=== PATIENT | female | born 1930 | race Caucasian/White ===

== ENCOUNTER 2016-05-10 13:38 | Outpatient (CLI) ==
[2013-12-15 09:37] VITALS: BMI 22.9
[2016-05-10 17:29] LABS: PROTHROMBIN TIME 27.9 SEC (9.3-11.0)
== END 2016-05-10 13:39 | disposition home or self-care (01) ==
LOC: LAB 13:38
PROVIDERS: ATTEND General Practice
DX: I48.91 Unspecified atrial fibrillation (principal)
CPT/HCPCS: 36415; 85610

== ENCOUNTER 2016-09-18 13:40 | Outpatient (CLI) ==
[2013-12-15 09:37] VITALS: BMI 22.9
--- NOTE | 2016-09-18 14:37 | US ---
EXAM: Ultrasound venous Doppler unilateral lower extremity HISTORY: Pain in right leg COMPARISON: None TECHNIQUE: Venous duplex ultrasound of the right lower extremity was performed using color, devlin-sc lynne, and Doppler flow imaging. FINDINGS: There is normal color flow and devlin scale appearance of the right common femoral, greater saphenous, profunda femoral, femoral, popliteal, peroneal, posterior tibial, and anterior tibial ve ins without evidence of intraluminal thrombus. Compression and augmentation is normal. IMPRESSION: No right lower extremity deep venous thrombosis.
== END 2016-09-18 13:41 | disposition home or self-care (01) ==
LOC: RAD 13:40
PROVIDERS: ATTEND General Practice
DX: M79.604 Pain in right leg (principal)

== ENCOUNTER 2016-10-30 10:50 | Inpatient (IN) ==
[2016-10-30 13:32] LABS: BASOPHILS % (AUTO) 0.4 % (0.0-3.0); EOSINOPHILS # (AUTO) 0.2 K/ul (0.0-0.7); EOSINOPHILS % (AUTO) 1.8 % (0.0-7.0); HEMATOCRIT 38.6 % (37.0-47.0); HEMOGLOBIN 12.8 g/dl (12.0-16.0); IMMATURE GRANULOCYTE % (AUTO) 0.2 % (0.0-5.0); LYMPHOCYTES # (AUTO) 2.9 K/uL (0.60-3.4); LYMPHOCYTES % (AUTO) 34.3 (10.0-50.0); MEAN CORPUSCULAR HGB CONC 33.2 (31.8-35.4); MEAN CORPUSCULAR VOLUME 87.5 fl (81.0-99.0); MONOCYTES # (AUTO) 0.6 K/uL (0.4-2.0); NEUTROPHILS # (AUTO) 4.7 K/ul (2.0-6.9); NEUTROPHILS % (AUTO) 56.3; PLATELET COUNT 201 10^3/uL (140-440); RED BLOOD COUNT 4.41 10^6/ul (4.20-5.40); WHITE BLOOD COUNT 8.39 K/ul (4.6-10.2)
[2016-10-30 13:51] LABS: PROTHROMBIN TIME 18.4 SEC (9.3-11.0)
[2016-10-30 13:52] LABS: ALBUMIN 3.3 g/dL (3.4-5.0); ALBUMIN/GLOBULIN RATIO 1.14; ANION GAP 15.4; BILIRUBIN,TOTAL 0.28 mg/dL (0.00-1.20); BUN/CREATININE RATIO 19.38; CALCIUM 9.2 mg/dL (8.2-10.2); CREATININE 0.98 mg/dL (0.60-1.30); POTASSIUM 4.4 mmol/L (3.5-5.10); TOTAL PROTEIN 6.2 g/dL (5.8-8.1)
--- NOTE | 2016-10-30 14:13 | US ---
EXAM: Carotid ultrasound HISTORY: Dizziness and blurred vision COMPARISON: None TECHNIQUE: Carotid ultrasound was performed using devlin scale, color, and Doppler imaging was perfor med. FINDINGS: Right carotid: There is atherosclerotic plaque in the common carotid, bulb, and internal carotid ar griselda. Peak systolic velocity measurement in the right internal carotid artery is 0.8 meters per sec ond. End-diastolic velocity measurement in the right internal carotid artery is 0.2 meters per seco nd. Right internal to common carotid artery peak systolic velocity ratio is 1.6. Flow in the right vertebral artery is antegrade. Left carotid: There is atherosclerotic plaque in the common carotid, bulb, and internal carotid art kira with visual estimate of narrowing approximating 50% in the bulb/proximal internal carotid artery . Peak systolic velocity measurement in the left internal carotid artery is 1.1 meters per second. End-diastolic velocity measurement in the left internal carotid artery is 0.3 meters per second. L eft internal to common carotid artery peak systolic velocity ratio measures 1.5. Flow in the left v ertebral artery is antegrade. IMPRESSION: 1. Right internal carotid: Peak systolic velocity corresponds with mild (less than 50%) stenosis 2. Left internal carotid: Peak systolic velocity corresponds with mild (less than 50%) stenosis. Vi sual estimate of narrowing approximating 50% in the bulb/proximal internal carotid artery.
[2016-10-30] MEDS ORDERED: COUMADIN PO SCH (17:00)
[2016-10-30 17:23] LABS: ERYTHROCYTE SEDIMENTATION RATE 20 mm/hr (0-20); ESR INTERNAL QC INTERNAL QC VALID
[2016-10-30 18:30] LABS: BILIRUBIN,URINE Negative (NEGATIVE); KETONES,URINE Negative (NEGATIVE); LEUKOCYTE ESTERASE ,URINE 1+ (NEGATIVE); NITRITE,URINE Negative (NEGATIVE); PROTEIN,URINE Negative (NEGATIVE); URINE, BLOOD Negative (NEGATIVE)
[2016-10-30 18:31] LABS: ADD URINE MICROSCOPIC YES
[2016-10-30 18:33] LABS: BACTERIA,URINE 2+ (NOT PRESENT)
[2016-10-30] MEDS: DRONEDARONE HCL 400 MG PO SCH (20:45)
[2016-10-30] MEDS: LOPRESSOR PO SCH (20:46)
[2016-10-30] MEDS: CYCLOSPORINE EACHEYE SCH ×2 (20:46→20:50)
[2016-10-31 04:26] LABS: BASOPHILS % (AUTO) 0.5 % (0.0-3.0); EOSINOPHILS # (AUTO) 0.3 K/ul (0.0-0.7); EOSINOPHILS % (AUTO) 3.3 % (0.0-7.0); HEMATOCRIT 39.7 % (37.0-47.0); IMMATURE GRANULOCYTE % (AUTO) 0.1 % (0.0-5.0); LYMPHOCYTES % (AUTO) 39.4 (10.0-50.0); MEAN CORPUSCULAR HEMOGLOBIN 28.6 pg (27.0-31.0); MEAN CORPUSCULAR HGB CONC 32.7 (31.8-35.4); MEAN CORPUSCULAR VOLUME 87.4 fl (81.0-99.0); MONOCYTES # (AUTO) 0.7 K/uL (0.4-2.0); MONOCYTES % (AUTO) 9.5 (0-10); NEUTROPHILS # (AUTO) 3.5 K/ul (2.0-6.9); NEUTROPHILS % (AUTO) 47.2; PLATELET COUNT 189 10^3/uL (140-440); RED BLOOD COUNT 4.54 10^6/ul (4.20-5.40); WHITE BLOOD COUNT 7.51 K/ul (4.6-10.2)
[2016-10-31 04:47] LABS: ALBUMIN 3.1 g/dL (3.4-5.0); ALBUMIN/GLOBULIN RATIO 1.07; ANION GAP 13.6; BILIRUBIN,TOTAL 0.37 mg/dL (0.00-1.20); BUN/CREATININE RATIO 17.64; CALCIUM 8.9 mg/dL (8.2-10.2); CREATININE 1.02 mg/dL (0.60-1.30); POTASSIUM 4.6 mmol/L (3.5-5.10)
[2016-10-31] MEDS ORDERED: IMDUR PO SCH (09:00)
[2016-10-31] MEDS: DRONEDARONE HCL 400 MG PO SCH (10:03)
[2016-10-31] MEDS: LOPRESSOR PO SCH (10:03)
[2016-10-31] MEDS: CYCLOSPORINE EACHEYE SCH (10:04)
--- NOTE | 2016-10-31 10:51 | CT ---
EXAM: CT of the abdomen pelvis without contrast History: Fluctuating blood pressure, adrenal mass. Comparison: CT abdomen pelvis 12/15/2013 Technique: Multiplanar CT images through the abdomen pelvis were obtained without the administratio n of IV contrast Findings: Lung bases are free of consolidation. No acute osseous abnormalities. Normal bilateral adrenal glands. Stomach is moderately distended with fluid. Cholelithiasis. Calc ified granulomas within the liver and spleen. Atherosclerotic vascular calcifications. No renal st ones and no hydronephrosis. No peripancreatic inflammation. Fluid filled nondilated loops of small bowel. Colonic diverticulosis. No free air. No ascites. No bladder wall thickening. Atrophic u terus. 2.5 cm left adnexal cyst is not significantly changed. Impression: 1. No adrenal masses. 2. Atherosclerotic vascular disease. 3. Probable mild gastroenteritis. 4. Colonic diverticulosis. 5. No change in the small left adnexal cyst.
[2016-10-31] MEDS ORDERED: COUMADIN PO SCH (17:00)
[2016-10-31 17:47] VITALS: TEMP 97.7
[2016-10-31 20:08] VITALS: BP 160/70
--- NOTE | 2016-11-05 11:19 | HP ---
CHIEF COMPLAINT: Fullness head, not feeling well, markedly elevated blood pressure and light headedness. SOURCE OF HISTORY: The patient HISTORY OF PRESENT ILLNESS: The patient early Saturday morning 10/29/16 at 2 am woke up from her sleep and claimed not to feel well. She stood up from bed and experienced nausea, wave of dizziness and staggering. She felt the fullness but no pain. She also experienced blurring of vision with diaphoresis plus generalized weakness. No vomiting with the nausea and denies any palpitation or rapid heart rate. The daughter did bring her to the emergency room at [facility] and was noted to have a blood pressure of 207 systolic. Medications were given and blood pressure did come to normal range and then patient was then discharged and instructed to see me so I saw the patient the following day 10/30/16. This patient had a CT scan at the ER showing no thrombosis, infarct or hemorrhages. The patient at the time of my examination prior to admission still did not feel well, still had the fullness, lightheadedness with some nausea but no further diaphoresis. It was felt that this patient probably been admitted to the hospital for further observation and diagnosis. The reason for the acute rise of blood pressure was not documented. PAST PERSONAL HISTORY: The patient had cardiac catheterization and stent in 2011 Bilateral cataract extraction 2014, uses Restasis for dryness of the ear Been Hypertensive for the last 10 years or so.Doesn't remember any episode of acute blood pressure rise. 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 Appendectomy at age 13 FAMILY HISTORY: Father had myocardial infarction Mother had congestive heart failure on pacemaker SOCIAL HISTORY: The patient is and resides with her and is the caregiver to her . She never did smoke but was exposed to second hand smoke from her father and spouse. MEDICATIONS: Restasis one drop to both eyes twice a day Warfarin 5mg daily plus 2.5mg daily Multi-vitamins one daily. Isosorbide Mononitrate 30mg daily Metoprolol Tartrate 25mg twice a day Warfarin Sodium 5mg daily Warfarin Sodium 22.5mg as directed Multaq 400mg PO twice a day ALLERGIES: No known drug allergies. REVIEW OF SYSTEMS: CONSTITUTIONAL: The patient has no fever or chills but is fatigued. FOUNTAIN DISPENSER: The patient has fullness of the head, light headedness, still somewhat staggery now with normal blood pressure. No seizures. VISUAL: The patient no longer has blurred vision or double vision or any loss of vision. AUDITORY: Hearing is slightly decreased but no tinnitus. No pain or drainage. RESPIRATORY: Denies any significant cough and denies. No history of hemoptysis CARDIOVASCULAR: Denies any chest pain or chest tightness. No shortness of breath on exertion. GASTROINTESTINAL: The patient had nausea with no vomiting. no abdominal pain and no diarrhea. GENITOURINARY: Denies any pain, frequency or urgency or urination. MUSCULOSKELETAL: No significant joint pain requiring medication ENDOCRINE: Negative INTEGUMENT: No rash or pleuritis. HEMATOLOGIC: Denies any history of prolonged bleeding PSYCHIATRIC: Affect is normal. PHYSICAL EXAMINATION: GENERAL: The patient is an 86 year old female admitted to the hospital because of fullness of the head, ataxia, waves of light headedness, diaphoresis and weakness with markedly elevated blood pressure. He was seen initially at [facility] Emergency room and was treated and advised to see me as soon as possible. VITAL SIGNS: Temperature 97.7, pulse 60, blood pressure left arm 140/64, right 154/66, respiratory rate 16, oxygen saturation 94%. HEAD: Unremarkable FACE: Symmetrical and equal with no facial weakness and no remarkable tenderness to palpation in the frontal maxillary sinus areas. EYES: Pupils equal/reactive to light. 3mm in size. Conjunctivae not pale. Sclerae not icteric. Questionable EARS: No inflammation of the external canal. No significant abnormalities in the tympanic membrane MOUTH: Unremarkable. THROAT: No inflammation, tumors or exudate. NECK: No masses. No bruit. No tenderness. No rigidity. CHEST: Symmetrical and equal with good expansion with no remarkable tenderness. LUNGS: Breath sounds are heard in both sides. No rales or wheezing. HEART: Audible and regular with good tones. No murmurs. ABDOMEN: Flat soft with no remarkable tenderness. No guarding and bowl sounds are active. EXTERNAL GENITALIA: Not examined RECTAL/PELVIC: Not performed LOWER EXTREMITIES: Symmetrical and equal with no significant edema in both legs. Pedal pulses diminished. Plantar stimulation flexion response. UPPER EXTREMITIES: Symmetrical and equal. Good motor strength and symmetrical. ASSESSMENT: 1. Accelerated hypertension 2. Hypertensive encephalopathy 3. Acute Labyrinthitis probable 4. Hypertension on medication 5. Coronary artery disease, status post cardiac cath plus stent 6. Cardiac arrhythmia on medication arrhythmic plus anticoagulation PLAN: 1. CAT scan of abdomen and pelvis to look for adrenal tumors 2. Urine collection for urinary catecholamines 3. BMA liter with instruction as to the kind of food that she should avoid before collection 4. CT angiogram head or brain since the patient has a pacemaker and MRI/MRA is not advisable although it can be accomplish but it should be in a place where there is stand by individual who could change in the pacemaker is that would be necessary. ARAVINDD
--- NOTE | 2016-11-08 10:56 | DS ---
PATIENT IDENTIFICATION: 86 year old female who was seen at the office on the day of admission because of fullness of the head and persistent dizziness. The patient woke up early in the morning on 10/29/2016 about 2 o' clock not feeling better. When she stood up, she was dizzy and staggered. She did not fall. She also had nausea with diaphoresis, but no vomiting. The patient was seen at [facility] emergency room and was noted to have a systolic blood pressure of 207. This patient is hypertensive, but never had a blood pressure close to that. She had fullness in the head with waves of dizziness with nausea. No vomiting. Some blurred vision and diaphoresis. No chest pain. She was discharged and instructed to see me the following day or as soon as possible. This patient was then seen the next day, 10/30/2016, and she had persistent problems although less. The patient was advised admission for further work-up and observation. The patient was felt to have some hypertensive encephalopathy symptoms, however the reason for the rapid rise of the blood pressure is not known. The daughter had suggested that maybe stress of taking care of her who has significant illness consisting of multiple myeloma, congestive heart failure and other significant medical conditions. I did advise them that stress would be more or less a diagnosis at the end for consideration, when ever consideration was ruled out. The patient had a CT scan of the head without contrast at [facility], which was negative for any acute processes. HOSPITAL COURSE: The patient was alert and oriented, not dyspneic, nor tachypneic. The blurred vision has resolved. She still has the fullness in her head, as well as the wavy dizziness. She claimed to have had no previous episodes of the same. The patient while in the hospital had the following work- up; CBC times two showing essentially the same results and not abnormal. ESR 20, ProTime nontherapeutic, chemistries unremarkable, except for a BUN at the upper normal and E GFR below 60, 64 and 51 respectably. Creatinine still is normal at 0.98 and 1.02. Liver enzymes normal. C reactive protein normal. Urinalysis slightly abnormal with leukocyte esterase 1+, WBC 5-10, bacteria 2+, nitrite negative. Urine culture preliminary gram negative rods. The patient, however, does not have any symptoms of dysuria or urgency. The patient throughout her hospital stay remained afebrile. The blood pressure was fluctuating and on admission was 140/64 left and 154/66 right with fluctuations as the same, except she had one blood pressure that was 102/70 or 10/31/16 at 5:28 in the morning. At 9:43 a.m. on 10/31/16, the blood pressure was 104/64. The rest of the blood pressures on 10/31/16 were normal, except just before discharge at 8:07 p.m. of 167/70. Carotid ultrasound negative for any significant carotid stenosis, less than 50% bilaterally. CT scan of the abdomen and pelvis showed no adrenal masses, atherosclerotic vascular disease, probable mild gastroenteritis, the patient had no GI symptoms. No change in the small left adnexal cyst. 24 hour urine collection was done for urine catecholamines. The collection is done at home, since the patient desires to go home because of her husbands condition. I had explained to her that we are not completely done with the work-up, however because of her situation, that she is discharged today. The patient at the time of discharge is alert, ambulatory, oriented times four and claimed to be feeling much better, although not completely back to where she was. She had movement of all extremities and no facial weakness. The pupils were equal and reactive to light. Strength of both upper and lower extremities are symmetrical and equal. She is then instructed to resume her previous medications and if she has any exacerbation of her problems, that she should return to the emergency room. She is to see me this coming Saturday. 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 FINAL DIAGNOSES: 1. ACCELERATED HYPERTENSION 2. HYPERTENSIVE ENCEPHALOPATHY SECONDARY TO #1 3. HYPERTENSION BY HISTORY 4. CORONARY ARTERY DISEASE, POST CARDIAC CATHETERIZATION WITH STENTS. 5. CARDIAC ARRHYTHMIA, PACEMAKER MTDD
== END 2016-10-31 20:10 | disposition home or self-care (01) | DRG 305 ==
LOC: MEDSURG B 10:50
PROVIDERS: ADMIT General Practice; ATTEND General Practice
DX: I10 Essential (primary) hypertension (principal); I67.4 Hypertensive encephalopathy; R53.1 Weakness; I25.10 Atherosclerotic heart disease of native coronary artery without angina pectoris; I49.9 Cardiac arrhythmia, unspecified; H53.8 Other visual disturbances; I95.1 Orthostatic hypotension; R42 Dizziness and giddiness; R11.0 Nausea; N83.8 Other noninflammatory disorders of ovary, fallopian tube and broad ligament; Z95.5 Presence of coronary angioplasty implant and graft; Z95.0 Presence of cardiac pacemaker; Z79.01 Long term (current) use of anticoagulants; Z79.899 Other long term (current) drug therapy; Z77.22 Contact with and (suspected) exposure to environmental tobacco smoke (acute) (chronic)
CPT/HCPCS: 36415; 80053; 81001; 85025; 85610; 85651; 86140; 87086; 87186; 93005; 93010

== ENCOUNTER 2016-11-02 07:56 | Outpatient (CLI) | END 2016-11-02 07:57 | disposition home or self-care (01) | LOC: LAB 07:56 | PROVIDERS: ATTEND General Practice | DX: R82.8 Abnormal findings on cytological and histological examination of urine (principal) | CPT/HCPCS: 36415; 81050; 82384 ==

== ENCOUNTER 2017-04-01 13:09 | Outpatient (CLI) | END 2017-04-01 13:10 | disposition home or self-care (01) | LOC: LAB 13:09 | PROVIDERS: ATTEND General Practice | DX: I10 Essential (primary) hypertension (principal); I25.10 Atherosclerotic heart disease of native coronary artery without angina pectoris; I35.8 Other nonrheumatic aortic valve disorders; I48.91 Unspecified atrial fibrillation; I67.4 Hypertensive encephalopathy; Z79.899 Other long term (current) drug therapy | CPT/HCPCS: 36415; 80053; 80061; 81001; 85025; 87086 ==

== ENCOUNTER 2017-05-13 11:46 | Outpatient (CLI) | END 2017-05-13 11:47 | disposition home or self-care (01) | LOC: LAB 11:46 | PROVIDERS: ATTEND General Practice | DX: I25.10 Atherosclerotic heart disease of native coronary artery without angina pectoris (principal); I11.9 Hypertensive heart disease without heart failure; I35.8 Other nonrheumatic aortic valve disorders; I48.91 Unspecified atrial fibrillation; Z79.899 Other long term (current) drug therapy | CPT/HCPCS: 36415; 80053; 80061; 81001; 85025 ==

== ENCOUNTER 2017-07-26 12:53 | Outpatient (CLI) | END 2017-07-26 12:54 | disposition home or self-care (01) | LOC: FCC-LAB 12:53 | PROVIDERS: ATTEND General Practice | DX: I25.10 Atherosclerotic heart disease of native coronary artery without angina pectoris (principal); I10 Essential (primary) hypertension; I48.91 Unspecified atrial fibrillation; I35.8 Other nonrheumatic aortic valve disorders; I15.9 Secondary hypertension, unspecified; Z78.9 Other specified health status; Z79.899 Other long term (current) drug therapy | CPT/HCPCS: 36415; 80053; 80061; 81001; 85025 ==

== ENCOUNTER 2017-10-14 15:10 | Observation (INO) ==
[2017-10-14 16:39] VITALS: BMI 21.9
[2017-10-14] MEDS ORDERED: WARFARIN SODIUM 2.5 MG PO SCH (18:15)
[2017-10-14] MEDS ORDERED: WARFARIN SODIUM 5 MG PO SCH (18:15)
[2017-10-14] MEDS ORDERED: TYLENOL PO PRN (18:17)
[2017-10-14] MEDS ORDERED: VISTARIL INJ IM PRN (18:17)
[2017-10-14] MEDS ORDERED: ATROPINE SULFATE PFS IVP PRN (18:17)
[2017-10-14] MEDS ORDERED: NITROSTAT SL PRN (18:17)
[2017-10-14] MEDS: CYCLOSPORINE EACHEYE SCH ×2 (19:18→20:58)
--- NOTE | 2017-10-14 19:23 | CT ---
EXAM: CT of the head without contrast History: Dizziness. Technique: Multiplanar CT images through the head were obtained without the administration of IV con trast Findings: The visualized paranasal sinuses and mastoid air cells are clear in general. No acute fabrizio varial abnormalities. Intracranially the ventricular and cisternal spaces are normal in size, shape and configuration for a patient of this age. No dominant mass or midline shift. No hydrocephalous. No acute intracranial hemorrhage or abnormal extraaxial fluid collections. Impression: No acute intracranial process.
--- NOTE | 2017-10-14 19:24 | DI ---
EXAM: Two views of the chest. History: Dizziness. Comparison: Chest radiograph 09/01/2010 Findings: Heart is mildly enlarged. Pacer device. Atherosclerotic vascular calcifications. No foca l consolidation. No appreciable pleural fluid and no pneumothorax. No acute osseous abnormalities. Impression: Mild cardiomegaly without acute disease in the chest.
[2017-10-14] MEDS ORDERED: METOPROLOL TARTRATE 25 MG PO SCH (21:00)
[2017-10-14] MEDS ORDERED: DRONEDARONE HCL 400 MG PO SCH (21:00)
[2017-10-14] MEDS ORDERED: LATANOPROST OP SCH (21:00)
[2017-10-15] MEDS ORDERED: WARFARIN SODIUM 5 MG PO SCH (07:30)
[2017-10-15] MEDS: CYCLOSPORINE EACHEYE SCH ×2 (09:57→20:18)
[2017-10-15] MEDS: IMDUR PO SCH (09:57)
[2017-10-15] MEDS: DRONEDARONE HCL 400 MG PO SCH ×2 (09:57→20:19)
[2017-10-15] MEDS: METOPROLOL TARTRATE 25 MG PO SCH ×2 (09:58→20:18)
[2017-10-15] MEDS: NON-FORMULARY MEDICATION (Multivitamin [Multi-Vitamin Daily] 1 EACH) PO SCH (10:00)
--- NOTE | 2017-10-15 13:16 | US ---
EXAM: Carotid ultrasound HISTORY: Dizziness COMPARISON: 10/30/2016 TECHNIQUE: Carotid ultrasound was performed using devlin scale, color, and Doppler imaging was perform ed. FINDINGS: Right carotid: There is atherosclerotic plaque in the common carotid and bulb/proximal internal frankel tid artery. Peak systolic velocity measurement in the right internal carotid artery is 0.9 meters pe r second. End-diastolic velocity measurement in the right internal carotid artery is 0.2 meters per second. Right internal to common carotid artery peak systolic velocity ratio is 1.6. Flow in the ri ght vertebral artery is antegrade. Left carotid: There is atherosclerotic plaque in the common carotid and bulb/internal carotid artery with visual estimate of narrowing approximating 50% or slightly greater in the bulb/proximal interna l carotid artery. Peak systolic velocity measurement in the left internal carotid artery is 0.7 mete rs per second. End-diastolic velocity measurement in the left internal carotid artery is 0.2 meters per second. Left internal to common carotid artery peak systolic velocity ratio measures 1.1. Flow in the left vertebral artery is antegrade. IMPRESSION: 1. Right internal carotid: Peak systolic velocity corresponds with mild (less than 50%) stenosis. 2. Left internal carotid: Peak systolic velocity corresponds with mild (less than 50%) stenosis. Vis ual estimate of narrowing approximating 50% or slightly greater in the bulb/proximal internal carotid artery
[2017-10-15] MEDS ORDERED: WARFARIN SODIUM 2.5 MG PO SCH (17:00)
[2017-10-15] MEDS ORDERED: LATANOPROST OP SCH (21:00)
[2017-10-16] MEDS: DRONEDARONE HCL 400 MG PO SCH (08:02)
[2017-10-16] MEDS: IMDUR PO SCH (08:02)
[2017-10-16] MEDS: CYCLOSPORINE EACHEYE SCH (08:02)
[2017-10-16] MEDS: METOPROLOL TARTRATE 25 MG PO SCH (08:02)
[2017-10-16] MEDS: NON-FORMULARY MEDICATION (Multivitamin [Multi-Vitamin Daily] 1 EACH) PO SCH (08:04)
[2017-10-16 10:13] VITALS: TEMP 97.6
--- NOTE | 2017-10-16 14:11 | STRESSMOD ---
Date of Test: 10/16/17 Ordering Physician: DR. DAYANARA BAIG Occupation: RETIRED Reason for Exam: CARDIOMEGALY, A-FIB, SOB Smoking History: NONE Height: 65" Weight: 132 Current Medications: ATROPINE, TYLENOL, VISTARIL, IMDUR, NITROSTAT, METOPROLOL, COUMADIN, RESTASIS Resting EKG: PACEMAKER RHYTHM Target Heart Rate: 111/131 S-T SEGMENT STAGE MPH/GRADE HEART RATE BPM BLOOD PRESSURE mmhg RHYTHM +/- ELEVATION DEPRESSION SYMPTOMS,COMMENTS At Rest 65 118/72 PACEMAKER X NONE 1 1.7/0% 70 114/68 SR X NONE 2 1.7/5% 124/52 SR X NONE 3 1.7/10% 4 2.5/12% 5 3.4/14% Immediately After 76 SR X Minutes Post Exercise 3:00 65 122/50 PACEMAKER X NO COMMENTS Minutes Post Exercise DURATION OF EXERCISE: 4:53 MAXIMUM HEART RATE REACHED: 76 BPM 94% OXYGEN SATURATION WITH EXERCISE ON ROOM AIR METS 3.5 INTERPRETATION: 1. INCONCLUSIVE FOR ISCHEMIA SHE DID NOT REACH TARGET HEART RATE 2. NO ARRHYTHMIAS 3. NO CHEST PAIN OR CHEST DISCOMFORT 4. BLOOD PRESSURE RESPONSE: NORMAL NORMAL LEFT VENTRICULAR CONTRACTILITY MTDD
[2017-10-16 15:05] VITALS: BP 104/56
[2017-10-16] MEDS ORDERED: WARFARIN SODIUM 5 MG PO SCH (17:00)
--- NOTE | 2017-10-17 08:18 | ECHOSTRESS ---
Date of Exam: 10/16/17 Ordering Physician: DR. DAYANARA BAIG Reason for Echo: CARDIOMEGALY, ATRIAL FIBRILLATION, SOB, STRESS TEST-- INCONCLUSIVE M-Mode Normal Adult Results LV Dimensions Normal Adult Results AoV Opening excursions >1.6 LVEDD-base- 3.5-5.8 Ao root dimensions 2.0-3.7 LVESD-base- 3.1-4.6 L. Atrium dimensions 1.9-3.8 Post. Wall thickness 0.8-1.1 IV septum (thickness) 0.7-1.2 Post. Wall excursion 0.72-1.3 Septal motion Systolic motion R. Ventricular cavity 1.5-2.0 LVEF 60% Paradoxical septal wall motion 2-D: NORMAL LEFT VENTRICULAR CONTRACTILITY--RESTING AND POST EXERCISE M-MODE: MV: AV: TV: PV: CHAMBER SIZE: WALL MOTION: NORMAL LEFT VENTRICULAR CONTRACTILITY--RESTING AND POST EXERCISE PERICARDIUM: INTERPRETATION: 1. NORMAL LEFT VENTRICULAR CONTRACTILITY--RESTING AND POST EXERCISE MTDD
--- NOTE | 2017-10-18 11:17 | ECHO2D ---
Date of Exam: 10/16/17 Ordering Physician: DR. DAYANARA BAIG Room # : 111 Reason for Echo: H/O A-FIB, SOB, CARDIOMEGALY, PACEMAKER M-Mode Normal Adult Results LV Dimensions Normal Adult Results AoV Opening excursions >1.6 1.3 LVEDD-base- 3.5-5.8 3.3 Ao root dimensions 2.0-3.7 2.8 LVESD-base- 3.1-4.6 L. Atrium dimensions 1.9-3.8 2.9 Post. Wall thickness 0.8-1.1 1.3 IV septum (thickness) 0.7-1.2 1.2 Post. Wall excursion 0.72-1.3 NORMAL Septal motion NORMAL Systolic motion R. Ventricular cavity 1.5-2.0 NORMAL LVEF 60% 73% Paradoxical septal wall motion NORMAL 2-D : LEFT VENTRICULAR CONTRACTILITY--CALCIFIC MITRAL VALVE ANNULUS--CALCIFIC AORTIC VALVES--NO EFFUSION, NO THROMBUS M-MODE: MV: CALCIFIC MITRAL VALVE ANNULUS AV: CALCIFIC AORTIC STENOSIS--MILD TV: NORMAL PV: NORMAL CHAMBER SIZE: NORMAL WALL MOTION: NORMAL PERICARDIUM: NORMAL INTERPRETATION: 1. BORDERLINE LEFT VENTRICULAR HYPERTROPHY 2. MILD CALCIFIC AORTIC STENOSIS 3. CALCIFIC MITRAL VALVE ANNULUS 4. NORMAL LEFT VENTRICULAR CONTRACTILITY MTDD
--- NOTE | 2017-10-18 13:54 | CONS ---
DATE OF CONSULTATION: 10/15/17 CHIEF COMPLAINT: SHORTNESS OF AIR, LIGHTHEADEDNESS, DIZZINESS. HISTORY OF PRESENT ILLNESS: This 87-year-old female saw Dr. Oleary on the for dizziness, unsteady gait , feelings of "bubbles" in the left side of the chest. She also reported shortness of breath. Symptoms started on Saturday, the , (duration 5 days). No symptoms of CHF or coronary insufficiency. REVIEW OF SYSTEMS: CONSTITUTIONAL: Fatigue. No night sweats. No malaise, lethargy. No fever or chills. HEENT: Eyes: No visual changes. No eye pain. No eye discharge. ENT: No sinus drainage. No epistaxis. No sinus pain. No sore throat. No odynophagia. No ear pain. No congestion. 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 No hemoptysis. No shortness of breath. CARDIOVASCULAR: Feeling of "bubbles" in the left side of chest. Reports this is intermittent; relieved by position changes. No angina symptoms. No CHF symptoms. No atypical chest pain for CAD. No palpitations. No orthopnea. GASTROINTESTINAL: No abdominal pain. No nausea or vomiting. No diarrhea or constipation. No hematemesis. No hematochezia. GENITOURINARY: No urgency. No frequency. No dysuria. No hematuria. No obstructive symptoms. No discharge. No pain. No significant abnormal bleeding. MUSCULOSKELETAL: Osteoarthritis pain. NEUROLOGICAL: Dizziness. No headache. No neck pain. No syncope. No seizures. PSYCHIATRIC: Not anxious. Depression - Still grieving over loss of spouse. Suicidal thoughts - none. No homicidal thoughts. SKIN: Warm and dry. No rash. No lesions. No wounds. ENDOCRINE: No unexplained weight loss. No weight gain. HEMATOLOGIC/LYMPHATIC: No anemia. No purpura. No petechiae. No prolonged or excessive bleeding. No palpable lymph nodes. MEDICATIONS: Multivitamin Isosorbide Restasis Multag Coumadin (alternate 5 mg/2.5 mg) Metoprolol Tartrate ALLERGIES: NKDA PAST MEDICAL HISTORY: 1. Hypertension 2. Mild GERD 3. Atrial fibrillation on Coumadin PAST SURGICAL HISTORY: 1. Pacemaker times 12-13 years; had wire replacement 1 year later at [facility]. He sees Dr. Dumas yearly. The patient sends in monthly reading. 2. Stent at [facility], 2011. 3. Cataract extraction, bilateral. SOCIAL/PERSONAL/FAMILY HISTORY: Nonsmoker. Occasional wine. . Family History: Father VT at age 43, sister heart surgery, mother hypertension ? PHYSICAL EXAMINATION: VITAL SIGNS: Pulse 65, BP 105/65, temprature 98, 02 sat 100% on room air. Weight 132 lbs, BMI 22.0. HEENT: Head normocephalic, atraumatic. Eyes: Extraocular muscles are intact. Pupils are equal, round and reactive to light and accommodation. Ears: No lesions. Nose appeared normal. Throat: No exudate or erythema. NECK: Supple. No JVD, no carotid bruit. No lymphadenopathy or thyromegaly. LUNGS: Decreased breath sounds. Clear to auscultation. Percussion note normal. Chest symmetrical. HEART: S1, S2, no S3. No murmurs. No cyanosis or clubbing. No ascites. Pulses: Dorsalis pedis and posterior tibial pulses +1 bilaterally. ABDOMEN: Soft. Nontender. Bowel sounds active. No CVA tenderness. No mass felt. EXTREMITIES: No edema. Full range of motion of all extremities, equal. NEUROLOGIC: Awake, alert and oriented times three. No focal deficit. Cranial nerves II through XII are grossly intact. No headache, no double vision or headache. SKIN: Not dry. Intact. Turgor - normal. LYMPHATIC: No palpable lymph nodes/no lymphedema. MUSCULOSKELETAL: Normal joints with no swelling. Muscle tone is normal. LABS/X-RAYS/INVESTIGATIONS/INTERIM RELEVANT DATA: WBC 7.38, normal differential, hemoglobin 12.1/HCT 37.3, RBC 4.15, PT 33.0, INR 3.42, Room air ABGs, sat 96%. pH 7.444, pc02 34.1, p02 76. Potassium 4.9, BUN 25, creatinine 1.2. Troponin within normal limits. UA 1+ esterase culture, no growth. EKG - ventricular paced. History of atrial fib on Coumadin. Chest x- ray - mild cardiomegaly. CT scan of head, no acute process. Carotid scan - less than 50% stenosis bilaterally. ASSESSMENT: 1. SHORTNESS OF BREATH WITH EXERTION (SEDENTARY, AGING, CAD)FIVE DAYS DURATION. MOSTLY SHORTNESS OF BREATH IS WITH EXERTION. 2. HISTORY OF CAD WITH STENT. 2011 3. PACEMAKER 12 TO 13 YEARS 4. ATRIAL FIBRILLATION ON COUMADIN 5. HYPERTENSION 6. HISTORY OF VT AT AGE 41 RECOMMENDATIONS: 1. Echocardiogram to evaluate LV function. The patient has mild systolic murmur I/. 2. Stress echocardiogram. The patient says she will never had a Dobutamine or chemical stress test because she almost when it was done at [facility]. 3. PFT 4. Carotid scan 5. Telemetry 6. Non HDL goal 100 The patient is up and about in the hospital, asymptomatic, looks good for her age. CONDITION: Stable. Thanks for referral, will follow. MARK
--- NOTE | 2017-10-18 14:04 | CONS ---
DATE OF SERVICE: 10/16/17 CONSULT FOLLOWUP SUBJECTIVE: The patient is up and about doing well. The patient had stress echo done on modified Sergio protocol. The patient walked for five minutes and reached the target. Pacemaker rhythm persists still half the time then the patient had her own rhythm with sinus with right bundle branch block with ST-T wave change. The patient's stress test was inconclusive but the patient had METS of 3.5. During the time she was on she did not have any chest tightness, jaw pain or any form of symptoms from coronary insufficiency. There were no arrhythmias of any significance. The patient's LV contractility at rest and post exercise were normal. The patient's echo showed borderline LVH, calcified aortic valves, calcific mitral valve annulus, mild aortic stenosis. The patient declined chemical stress test or nuclear stress test. The case was discussed with attending. Considering the patient's METS, which is 3.5, almost can do all ADLs and some ordinary activity without having any signs of ischemia. She is stable enough to be discharged. Her PFT were practically normal. The patient is stable enough to be discharged, advised to continue the same medications. Explained to her that for further issues with shortness of breath, she may have to go to [place] as we are limited with not being able to perform any chemical stress test. CONDITION: Stable. MTDD
--- NOTE | 2017-10-18 14:09 | PN ---
CODING FOR BILLIN10/15/17 LEVEL 5 10/16/17 EXTENSIVE MTDD
--- NOTE | 2017-12-18 15:29 | HP ---
DATE OF SERVICE: 10/14/17 CHIEF COMPLAINT: Lightheadiness, dizziness, unsteady gait and sensation of a bubble in her pacemaker area. HISTORY OF PRESENT ILLNESS: The patient had been experiencing the above symptoms for the four days. She had previous episodes of dizziness, but the dizziness now is a different sensation than it was before. She also has some dyspnea on exertion. She was told that her pacemaker will be replaced or needed to be replaced. I don't know if the pacemaker was detected to be not functioning. She did call the office and for some reason there was a change in the module that she is not able to check the pacemaker. The patient was then admitted to this hospital for further examination of the dizziness, lightheadedness, shortness of breath, as well as the bubble sensation in the pacemaker and also to determine is the pacemaker still is functioning. PAST PERSONAL HISTORY: The patient had a cardiac catheterization and stent in 2011, bilateral cataract extraction 2014. Hypertension on medication. Appendectomy at age 13. She was admitted 10/30/2016 because of fullness of the head. Diagnosis accelerated hypertension, mild hypertensive encephalopathy. This patient also had a cardiac arrhythmia with a pacemaker. FAMILY HISTORY: Father had myocardial infarction. Mother had congestive heart failure with a pacemaker. SOCIAL HISTORY: The patient is a and resides alone with a good help from the family. She never did smoke any cigarettes or use any tobacco products and no alcoholic beverages. Father, however, did smoke, as well as her spouse. MEDICATIONS: Prior to this admission Restasis one drop to both eyes twice a day Warfarin alternating 5 and 2.5 mg Isosorbide Mononitrate 30 mg daily Metoprolol 25 mg twice a day Multaq 400 mg tablet every 12 hours ALLERGIES: No know drug allergies. REVIEW OF SYSTEMS: CONSTITUTIONAL: No fever and no chills, but seemed fatigued. REINSURANCE ACCOUNTANT: The patient has some dizziness, but no syncopal episodes or seizure disorder. VISUAL: Denies any blurred vision, double vision or transient loss of vision and no hemianopsia. AUDITORY: Hearing is adequate. Denies any pain or drainage in both ears. RESPIRATORY: No cough, some shortness of breath on exertion. No hemoptysis. CARDIOVASCULAR: Denies any chest pain or chest tightness, but does have some exertional dyspnea. The heart is irregular with a pacemaker. She does feel a sensation of a bubble in the pacemaker area. GASTROINTESTINAL: Appetite is about the same. Not great, but no dysphagia, no anorexia, no abdominal pain. No change in bowel habits. No blood in the stool. GENITOURINARY: Denies any pain, frequency or urgency. MUSCULOSKELETAL: No significant joint pains. ENDOCRINE: Negative. INTEGUMENT: Denies any rash, pruritus or ecchymosis. HEMATOLOGIC: Denies any history of prolonged bleeding and no easy bleeding and no ecchymosis. PSYCHIATRIC: Affect is normal. PHYSICAL EXAMINATION: GENERAL: We have an 87 year old female who is alert and oriented admitted to the hospital because of dizziness, shortness of breath and sensation of a bubble in the pacemaker. VITAL SIGNS: Temperature 97.6, pulse 64, blood pressure 104/56, respiratory rate 18, oxygen saturation 98 at room air. HEAD: Unremarkable. Scalp with no active dermatitis. FACE: Symmetrical and equal with no facial weakness. No redness and denies any tenderness to palpation under pressure in the frontal and maxillary sinus areas. EYES: Pupils equal/reactive to light about 3 mm in size and round. Conjunctivae not pale. Sclerae not icteric. EARS: No inflammation in the canals. No significant abnormalities in the tympanic membranes. MOUTH: Unremarkable. THROAT: No inflammation, tumors or exudate. NECK: No masses. No bruit. No tenderness. No rigidity. CHEST: Symmetrical. LUNGS: Breath sounds are heard in both sides. No rales or wheezing. HEART: Audible and regular most of the time, probably pacemaker driven. No murmurs. ABDOMEN: Flat, soft with no remarkable tenderness, no guarding. Bowel sounds are active. No masses palpable. EXTERNAL GENITALIA: Not examined. PELVIC: Not performed. RECTAL: Not performed. LOWER EXTREMITIES: Symmetrical and equal with no significant edema in both legs. Pedal pulses are diminished. UPPER EXTREMITIES: Symmetrical and equal. NOTE: Visual field is grossly normal. No nystagmus, horizontal or transverse. ASSESSMENT: 1. DIZZINESS ETIOLOGY UNDETERMINED. 2. EXERTIONAL DYSPNEA CAUSE UNDETERMINED. 3. HISTORY OF HYPERTENSION 4. HISTORY OF ACUTE LABYRINTHITIS 5. CORONARY ARTERY DISEASE, STATUS POST CARDIAC CATHETERIZATION AND STENT APPLICATION 6. CARDIAC ARRHYTHMIA ON MEDICATION, PLUS PACEMAKER TIME SPENT: GREATER THAN 65 MINUTES MTDD
--- NOTE | 2017-12-18 15:43 | DS ---
DATE OF SERVICE: 10/16/17 PATIENT IDENTIFICATION: 87 year old female who was admitted to the hospital because of dizziness, shortness of breath, sensation of bubble in the pacemaker. HOSPITAL COURSE: The patient's examination revealed an 87 year old female who looks weaker, but not cyanotic and not dyspneic at rest. LUNGS: Clear. HEART: Audible and mostly regular. ABDOMEN: Unremarkable. The patient during this hospitalization had a CT scan of the head showing no acute intracranial process. Mild cardiomegaly without acute disease. Carotid Doppler right internal carotid less than 50%, left internal carotid less than 50 %. Stress test was inconclusive for ischemia, since she did reach the target heart rate. No arrhythmia and no chest pain or discomfort during the course of exercise. Echocardiogram showed normal left ventricular contractility, resting and post exercise. No remarkable abnormalities. Ejection fraction was 73%. The patient's home medications were continued. The sessions clerk felt that she is stable and that her pacemaker is still functioning. The labs on admission with regards to CBC is essentially unchanged. PT 35.7, INR 3.71. Her pulmonary function test incomplete and not in update. PLAN: The patient at discharge was instructed to resume previous medications. She should take her Warfarin on alternating days as she was taking before. 5 alternating with 2.5 mg. FINAL DIAGNOSES: 1. DIZZINESS, INTERMITTENT, MAYBE VESTIBULAR IN ORIGIN 2. FATIGUE, MAYBE MULTIFACTORIAL, SUCH AGE, DECONDITIONING AND CARDIAC PROBLEMS 3. HYPERTENSION CONTROLLED 4. CORONARY ARTERY DISEASE, STATUS POST CARDIAC CATHETERIZATION AND STENT APPLICATION 5. CARDIAC ARRHYTHMIA, PERSISTENT PROGNOSIS: Guarded. TIME SPENT: GREATER THAN 30 MINUTES MTDD
--- NOTE | 2017-12-19 13:05 | PN ---
DATE OF SERVICE: 10/15/17 The patient, today, is alert and feeling better. I had discussed the CT scan of the head, which was unremarkable meaning there are no acute findings to account for the dizziness. Chest x-ray was unremarkable and the carotid ultrasound showed no significant stenosis. LUNGS: Clear. HEART: Audible and mostly regular rhythm. ABDOMEN: Unremarkable. LOWER EXTREMITIES: No tenderness in the calf muscles. Cardiology was requested to see this patient because of the dizziness, as well as the previous heart disease, as well as cardiac catheterization and stent application. CONDITION: Stable. MTDD
== END 2017-10-16 17:20 | disposition home or self-care (01) ==
LOC: MEDSURG A 15:10
PROVIDERS: ADMIT General Practice; ATTEND General Practice
DX: R42 Dizziness and giddiness (principal); R06.00 Dyspnea, unspecified; R53.83 Other fatigue; I25.10 Atherosclerotic heart disease of native coronary artery without angina pectoris; I10 Essential (primary) hypertension; I49.9 Cardiac arrhythmia, unspecified; Z95.0 Presence of cardiac pacemaker
CPT/HCPCS: 36415; 80053; 81001; 82803; 84484; 85025; 85610; 87086; 93005; 93010; 99217; 99220; 99225

== ENCOUNTER 2018-01-22 11:56 | Outpatient (CLI) | END 2018-01-22 11:57 | disposition home or self-care (01) | LOC: RHC-LAB 11:56 | PROVIDERS: ATTEND General Practice | DX: I25.10 Atherosclerotic heart disease of native coronary artery without angina pectoris (principal); I48.91 Unspecified atrial fibrillation; Z79.899 Other long term (current) drug therapy | CPT/HCPCS: 36415; 80053; 80061; 81001; 85025; 85610 ==

== ENCOUNTER 2018-04-25 15:09 | Outpatient (CLI) | payer OTHER | END 2018-04-25 15:10 | disposition home or self-care (01) | LOC: RHC-LAB 15:09 | PROVIDERS: ATTEND General Practice | DX: I48.91 Unspecified atrial fibrillation (principal); I35.8 Other nonrheumatic aortic valve disorders; Z78.9 Other specified health status; I15.9 Secondary hypertension, unspecified; Z79.899 Other long term (current) drug therapy | CPT/HCPCS: 36415; 80053; 80061; 85025; 85610 ==